=== PATIENT | male | born 1965 | race Caucasian/White ===

== ENCOUNTER → 2016-06-20 | Outpatient (CLI) | payer OTHER ==
[~2016-06-20] MED LIST: ADVIL100 M2 PO; CARDIO OMEGA B1 EACH PO; CENTRUM SILVER1 EAC2 PO; FISH OIL 1,001000 M2 PO; GREEN TEA EXTR250 MG PO
== END ==
LOC: CAT 12:22
DX: Z13.6 Encounter for screening for cardiovascular disorders (principal)

== ENCOUNTER → 2019-09-02 | Outpatient (CLI) | payer OTHER | LOC: CAT 08:54 | PROVIDERS: ATTEND Family Medicine | DX: Z13.6 Encounter for screening for cardiovascular disorders (principal); I25.10 Atherosclerotic heart disease of native coronary artery without angina pectoris; E78.00 Pure hypercholesterolemia, unspecified ==